=== PATIENT | male | born 1995 | race Hispanic/Latino ===

== ENCOUNTER 2022-10-21 08:45 | Emergency (ER) | payer BC, SELFPAY ==
[2022-10-21 08:57] VITALS: BP 143/76; PULSE 67; RESP 18; TEMP 37; O2SAT 98; BMI 27.3
--- NOTE | 2022-10-21 09:00 | ED.URI ---
HPI - URI/Sore Throat General Chief Complaint: Upper Respiratory Symptoms Stated Complaint: cough T-6 concern about covid Time Seen by Provider: 10/21/22 08:51 History of Present Illness HPI Narrative: Patient is a 27-year-old male without past medical history presenting today with COVID exposure. Reports girlfriend is positive for COVID he is had a cough for 6 days. Is requesting a COVID test and paperwork to be filled out for his work. He reports he is having body aches fever chills. He is overall feeling a lot better. Related Data Allergies Allergy/AdvReac Type Severity Reaction Status Date / Time No Known Drug Allergies Allergy Verified 10/21/22 15:30 Review of Systems Review of Systems ROS Unobtainable: All systems reviewed & are unremarkable except as noted in HPI and below Patient History Social History (System 10/21/22 @ 15:30 by Tamra Harding) Smoking Status: Never smoker Exam Initial Vital Signs Initial Vital Signs: Vital Signs Temperature 98.6 F 10/21/22 08:57 Pulse Rate 67 10/21/22 08:57 Respiratory Rate 18 10/21/22 08:57 Blood Pressure 143/76 H 10/21/22 08:57 Pulse Oximetry 98 10/21/22 08:57 Oxygen Delivery Method Room Air 10/21/22 08:57 GENERAL: Well-appearing, well-nourished and in no acute distress. HEENT: Head atraumatic,EOMI, pupils reactive, face symmetric, moist mucous membranes CARDIOVASCULAR: Regular rate and rhythm without murmurs, rubs or gallops. RESPIRATORY: Breath sounds equal bilaterally, no wheezes rales or rhonchi. EXTREMITIES: Normal range of motion, no clubbing or edema. Neurovascularly intact NEUROLOGICAL: Alert and oriented x4. SKIN: Warm, dry, no laceration, no petechiae, no rashes or lesions. Course Orders Ordered: ED Orders 10/21/22 08:57 COVID19 -Nasal RAPID Stat Vital Signs Vital signs: Vital Signs - 8 hr 10/21/22 08:57 Temperature 98.6 F Pulse Rate 67 Respiratory Rate 18 Blood Pressure 143/76 H Pulse Oximetry 98 Oxygen Delivery Method Room Air MDM - URI/Sore Throat Lab Data Labs: Lab Results 10/21/22 Range/Units 08:57 SARS-CoV-2 (PCR) Positive H (Negative) MDM Narrative Medical decision making narrative: Patient healthy 27-year-old male needing work no and COVID test. He started back at work yesterday per work policy but needs paperwork. He is overall feeling a lot better. He did not come in when he was feeling sick but did well at home with supportive measures only. Discharge Plan Departure Patient Disposition: Home Clinical Impression: COVID-19 Instructions: COVID-19 Activity Restrictions/Additional Instructions: *You have been diagnosed with COVID-19 *What to do: You have COVID. You need to continue to drink fluids treat fever as needed. *Continue to take medications as directed *Follow up with your primary care provider in 2-3 days or call [phone] *Return to ER if you should have any new, worsening or concerning symptoms Referrals: Miscellaneous,Doctor, MD [Primary Care Provider] - Stand Alone Forms: Patient Portal/API
[2022-10-21 09:15] LABS: COVID19 -Nasal RAPID POSITIVE (Negative)
== END 2022-10-21 09:46 | disposition home or self-care (01) ==
PROVIDERS: Emergency Provider Emergency Medicine
DX: U07.1 COVID-19 (principal)
CPT/HCPCS: 87635; 99281; 99282; C9803